=== PATIENT | female | born 1975 | race Caucasian/White ===

== ENCOUNTER 2018-12-26 10:02 | Emergency (ER) | payer BC ==
[~2018-12-26] VITALS: Ht 160 cm; Wt 59.0 kg
[2018-12-26] MEDS ORDERED: IBUPROFEN 800MG TABLET PO ONE (11:15)
[2018-12-26 11:26] VITALS: BP 116/60
== END 2018-12-26 13:20 | disposition home or self-care (01) ==
LOC: ER 10:02
DX: M54.5 Low back pain (principal); M25.531 Pain in right wrist; E89.0 Postprocedural hypothyroidism; Z85.850 Personal history of malignant neoplasm of thyroid; V43.62XA Car passenger injured in collision with other type car in traffic accident, initial encounter; Y93.89 Activity, other specified; Y92.488 Other paved roadways as the place of occurrence of the external cause
CPT/HCPCS: 29125; 73110; 99283